=== PATIENT | male | born 1960 | race Asian ===

== ENCOUNTER 2025-04-25 10:10 | Emergency (ER) | payer BC ==
[~2025-04-25] VITALS: Ht 177.8 cm; Wt 68.6 kg
[2025-04-25 10:19] VITALS: BP 120/76; PULSE 81; RESP 16; O2SAT 98
[2025-04-25] MEDS ORDERED: PRED10TA23 PO (10:52)
--- NOTE | 2025-04-25 10:52 | Physician Documentation ---
History of Present Illness ~ Chief Complaint: Allergic Reaction Stated Complaint: ALLERGIC REACTION Time Seen by MD: 10:25 OK to notify your PCP?: Yes Source: patient Mode of Arrival: POV Exam Limitations: no limitations HPI Presents with bilateral rash to upper and lower eyelids and bilateral arms for the past week. No known exposure. Reports has this reaction every spring but usually not in the fall. Has steriod cream for arms. Denies pain to rash but there is some itching. Medication Reconciliation Allergies: Coded Allergies: No Known Allergies (Unverified , 04/25/25) Scheduled Prednisone (Prednisone), 1 TAB PO DAILY Review of Systems All Other Systems at this time: Reviewed and Negative Physical Exam Vital Signs: RN Vital Signs have been reviewed: Yes, Temperature: 98.4, Source: Oral, Heart Rate: 81, Respiratory Rate: 16, BP: 120/76, Pulse Oximetry: 98, Weight: 68.600 Oxygen Flow Rate: 0 Pulse Oximetry Reflects: adequate oxygenation Physical Exam General: Alert, no apparent distress. HEENT: PERRL, EOMI, no injection, moist mucous membranes. Neck: Full range of motion. Respiratory: Lungs clear, no respiratory distress. Chest: No accessory muscle use. Cardiovascular: Regular rate and rhythm, no murmurs. Gastrointestinal: Soft, nontender, nondistended. Bowels sounds present. Extremities: Normal range of motion, no deformity. Neurologic: Oriented x4. Psychiatric: Normal mood and affect. Skin: Macular papular raised erythematous rash to bilateral orbitals and bilateral forearms. no drainage or vesicles. Progress Results/Orders Results/Orders Completed Orders - LORI FERRARI Prednisone Tablet (Prednisone Tablet) (04/25/25 10:50) Medications Received in ER Medications (Trade) Dose Ordered Sig/Nancy Route PRN Reason Start Time Stop Time Status Last Admin Dose Admin (predniSONE tablet) 60 mg ONCE ONCE PO 04/25/25 10:50 04/25/25 10:51 DC 04/25/25 10:52 60 MG Vital Signs 04/25/25 10:19 Temp 98.4 Pulse 81 Resp 16 B/P (MAP) 120/76 Pulse Ox 98 O2 Flow Rate 0 Medical Decision Making Additional information obtaine: old records Findings Has allergy to unknown substance for past week. rash to face and arms. no signs of infection. tried OTC medication and unknown steroid cream. Gave prednisone pack and told to keep using cream to arms but do not use around eyes or on face. Differential Dx:Considerations: Include: Anaphylaxis, Angioedema, Bronchospasm, Contact dermatitis, Drug reaction Departure Disposition: 01 HOME / SELF CARE / HOMELESS Impression: Primary Impression: Acute allergic reaction Condition: Stable Discharge Instructions: Hives, [id number] Additional Instructions: Continue to use cream to rashes on arms, do not use around eyes. Avoid itching as this can cause a secondary bacterial infection. Return for any new or worsening symptoms. Continue taking OTC allergy medication. Referrals: NO PRIMARY CARE PROVIDER (PCP) Prescriptions Prednisone (Prednisone) 10 Mg Tablet 1 TAB PO DAILY for 5 Days, #21 TAB Day 1-2: take 4 tablets by mouth daily. Day 3-4: take 2 tablets by mouth daily. Day 5: take 1 tablet by mouth daily. Prov: LORI FERRARI 04/25/25 Education Educated: Patient Educated regarding: diagnosis, treatment, prognosis, need for follow up Signature Scribe Signature: . Attestation: Scribed for Lori Ferrari by Lori Bateman NP . 04/25/25 11:03 LORI FERRARI Apr 25, 2025 10:52
[2025-04-25 11:00] VITALS: TEMP 98.4
== END 2025-04-25 11:04 | disposition home or self-care (01) ==
LOC: ER 10:11
DX: T78.40XA Allergy, unspecified, initial encounter (principal); X58.XXXA Exposure to other specified factors, initial encounter
CPT/HCPCS: 99283; J7512

== ENCOUNTER 2025-05-02 09:05 | Emergency (ER) | payer BC ==
[~2025-05-02] VITALS: Ht 177.8 cm; Wt 69.3 kg
[2025-05-02 09:10] VITALS: BP 122/74; PULSE 94; RESP 16; O2SAT 98
[2025-05-02] MEDS ORDERED: KEN0.1O TOP (10:14)
[2025-05-02] MEDS ORDERED: PRED10TA23 PO (10:14)
--- NOTE | 2025-05-02 10:14 | Physician Documentation ---
History of Present Illness ~ Chief Complaint: Rash Stated Complaint: RASH Time Seen by MD: 09:46 OK to notify your PCP?: Yes Source: patient Mode of Arrival: POV Exam Limitations: no limitations HPI Was seen last week for itchy rash to his arms and eyelids. He was able to take the prednisone pack and the rash on his face and eyelids resolved and the rash on his arms improved but persisted when stopping the prednisone. He reports that he has been using the Kenalog cream from previous visit and that provide some relief but he has ran out of this cream. He has yet to see a log operations coordinator. Medication Reconciliation Allergies: Coded Allergies: No Known Allergies (Unverified , 05/02/25) Scheduled Prednisone (Prednisone), 1 TAB PO DAILY Triamcinolone Acetonide 0.1% Crm* (Kenalog 0.1% Crm*), 1 APPLIC TOP Q12H Discontinued Medications Prednisone (Prednisone), 1 TAB PO DAILY Discontinued Reason: Auto Discontinued Past Medical History Past Medical History: No Pertinent History Review of Systems All Other Systems at this time: Reviewed and Negative Physical Exam Vital Signs: RN Vital Signs have been reviewed: Yes, Temperature: 97.2, Source: Temporal, Heart Rate: 94, Respiratory Rate: 16, BP: 122/74, Pulse Oximetry: 98, Weight: 69.300 Oxygen Flow Rate: 0 Pulse Oximetry Reflects: adequate oxygenation Physical Exam General: Alert, no distress. HEENT: No injection, moist mucous membranes. Neck: Full range of motion. Respiratory: No respiratory distress, equal chest rise and fall. Chest: No accessory muscle use. Cardiovascular: Regular rate and rhythm. Gastrointestinal: Nondistended. Extremities: Normal range of motion, no deformity. Neurologic: Oriented x4. Psychiatric: Normal mood and affect. Skin: Macular papular, blanchable, raised erythematous rash to bilateral forearms, bilateral shins and left lower back. no drainage, extra signs or vesicles seen Progress Results/Orders Reviewed/noted all lab results: Yes Results/Orders Vital Signs 05/02/25 05/02/25 09:10 10:40 Temp 97.2 97.2 Pulse 94 Resp 16 B/P (MAP) 122/74 Pulse Ox 98 O2 Flow Rate 0 Medical Decision Making Additional information obtaine: old records Findings Rash on his face is fully resolved after prednisone pack last week. Still has an itchy rash to bilateral extremities which is now spread to his lower legs as well as a small patch on his back. No signs of infection with this rash or drainage. He has been using the triamcinolone cream but has since ran out and needs more. We discussed that he needs to see a log operations coordinator for a proper diagnosis of his skin condition. Given a refill of the triamcinolone as well as a longer prednisone taper pack. He agrees with the plan. Differential Dx:Considerations: Include: Drug reaction, Gangrene, Herpes zoster, Pityriasis rosea, Psoriaisis, Rosacea, Scabies, Scarlet fever, Tinea, Viral exanthema Departure Disposition: HOME / SELF CARE / HOMELESS Impression: Primary Impression: Allergic urticaria Condition: Stable Discharge Instructions: Pruritus Additional Instructions: Highly recommend seen a log operations coordinator to get a proper diagnosis for your rash. Follow up with their primary care provider in the next week and return back here for any new or worsening symptoms Referrals: NO PRIMARY CARE PROVIDER (PCP) Prescriptions Triamcinolone Acetonide 0.1% Crm* (Kenalog 0.1% Crm*) 1 Applic Tube 1 APPLIC TOP Q12H for 10 Days, #80 GM Prov: LORI FERRARIP 05/02/25 Prednisone (Prednisone) 10 Mg Tablet 1 TAB PO DAILY for 9 Days, #21 TAB Start taking tomorrow 05/03/25. Day 1-3: take 4 tablets by mouth daily. Day 4-6: take 2 tablets by mouth daily. Day 7-9: take 1 tablet by mouth daily. Prov: LORI FERRARI 05/02/25 Education Educated: Patient Educated regarding: diagnosis, treatment, prognosis, need for follow up Additional Comment Medical Screen Exam This patient recieved a medical screening examination. After reviewing the individual's medical complaints with presenting symptoms and performing an appropriate physical examination, it was determined that no immediate life- threatening emergency medical condition is present. This individual is also not a women having contractions. I have reviewed this case [id number] with the PA, including physical examination, laboratory and imaging results as appropriate. The patient was evaluated [id number] and I agree with the PA's notes. I agree with the findings, evaluation and disposition. Signature Scribe Signature: .. Attestation: Scribed for Lori Ferrari by Lori Bateman NP . 05/02/25 10:16 Parts of this note were created using [employer] voice recognition software program. While efforts were made to correct any mistakes made by this voice recognition software program, nonsensical phrases may remain in this note. In addition, there may be errors and syntax, grammar, content and spelling. LORI FERRARI May 02, 2025 10:14 PEDRO CHANG MD May 02, 2025 18:27
[2025-05-02 10:40] VITALS: TEMP 97.2
== END 2025-05-02 10:41 | disposition home or self-care (01) ==
LOC: ER 09:05
DX: L50.0 Allergic urticaria (principal); Z88.8 Allergy status to other drugs, medicaments and biological substances
CPT/HCPCS: 99283; J7512

== ENCOUNTER 2025-05-22 10:14 | Emergency (ER) | payer BC ==
[~2025-05-22] VITALS: Ht 177.8 cm; Wt 69.5 kg
[2025-05-22 10:15] VITALS: BP 136/75; PULSE 92; RESP 16; O2SAT 99
--- NOTE | 2025-05-22 10:50 | Physician Documentation ---
History of Present Illness ~ Chief Complaint: Rash Stated Complaint: RASH Time Seen by MD: 10:20 Source: patient Mode of Arrival: POV Exam Limitations: no limitations HPI 64-year-old with continued rash has seen primary care and does have an appointment with dermatology next month. Patient has been using creams and hydroxyzine for itching he has seen someone in the emergency department in the past and given prednisone. Patient states the rash started with his forearm but is now spots to his abdomen arms and legs. No fevers chills or other associated symptoms. Medication Reconciliation Allergies: Coded Allergies: No Known Allergies (Unverified , 05/02/25) Past Medical History Past Medical History: No Pertinent History Review of Systems All Other Systems at this time: Reviewed and Negative Integumentary: Reports: see HPI Physical Exam Vital Signs: RN Vital Signs have been reviewed: Yes, Temperature: 97.8, Source: Oral, Heart Rate: 92, Respiratory Rate: 16, BP: 136/75, Pulse Oximetry: 99, Weight: 69.500 Oxygen Flow Rate: 0 Physical Exam General: Alert, no apparent distress. HEENT: moist mucous membranes. Neck: Full range of motion. Respiratory: No respiratory distress speaking in full sentences Chest: No accessory muscle use. Cardiovascular: Appears well perfused Neurologic: Oriented x4. Psychiatric: Normal mood and affect. Skin: Small maculopapular areas to his abdomen there was a large area to the left forearm with signs of healing but a couple of centralized scabbed lesions. Progress Results/Orders Results/Orders Vital Signs 05/22/25 10:15 Temp 97.8 Pulse 92 Resp 16 B/P (MAP) 136/75 Pulse Ox 99 O2 Flow Rate 0 Medical Decision Making Additional information obtaine: old records Findings Patient has rash of unknown origin with dermatology appointment in May. Prednisone taper in cream to follow up with primary and derm Differential Dx:Considerations: Include: Atopic dermatitis, Contact dermatitis, Drug reaction, Scabies, Tinea, Urticaria, Other Departure Time of Disposition: 10:47 Disposition: 01 HOME / SELF CARE / HOMELESS Impression: Primary Impression: Urticaria Additional Impression: Acute allergic reaction Condition: Stable Discharge Instructions: Hives Additional Instructions: Maintain appointment with Dermatology follow up with primary care after labs Referrals: NO PRIMARY CARE PROVIDER (PCP) Prescriptions Triamcinolone Acetonide 0.1% Crm* (Kenalog 0.1% Crm*) 1 Applic Tube 1 APPLIC TOP Q12H for 10 Days, #80 GM Prov: LASHAWN HAM NP 05/22/25 Prednisone (Prednisone) 10 Mg Tablet 0 PO DAILY, #42 TAB Take 4 tabs daily x4 days, then 3 daily x4 days 2 daily x4 days 1 daily x4 days 1/2 daily x4 days then STOP Prov: LASHAWN HAM NP 05/22/25 Education Educated: Patient Educated regarding: diagnosis, treatment, need for follow up Signature Scribe Signature: No scribe Attestation: The note accurately reflects work and decisions made by me.Lashawn MARTINEZ 05/22/25 10:51 LASHAWN HAM NP May 22, 2025 10:50
[2025-05-22] MEDS ORDERED: KEN0.1O TOP (10:51)
[2025-05-22] MEDS ORDERED: PRED10TA23 PO (10:51)
[2025-05-22 10:57] VITALS: TEMP 97.8
== END 2025-05-22 10:58 | disposition home or self-care (01) ==
LOC: ER 10:15
DX: L50.0 Allergic urticaria (principal)
CPT/HCPCS: 99283